=== PATIENT | female | born 1965 | race Hispanic/Latino ===

== ENCOUNTER 2019-06-22 11:05 | Outpatient (CLI) | payer OTHER ==
--- NOTE | 2019-07-19 12:14 | MMO ---
Bilateral MAMMO Bilat Screen [facility]. CLINICAL HISTORY: Patient is 53 years old and is seen for screening. The patient has no family history of breast cancer. The patient has no personal history of cancer. VIEWS: The views performed were: bilateral craniocaudal with tomosynthesis and bilateral mediolateral oblique with tomosynthesis. This study has been interpreted with the assistance of computer-aided detection. MAMMOGRAM FINDINGS: There are scattered fibroglandular densities. Finding 1: There are benign appearing calcifications seen in both breasts. Finding 2: There are benign appearing densities seen in both breasts. There are no suspicious masses, suspicious calcifications, or new areas of architectural distortion. IMPRESSION: THERE IS NO MAMMOGRAPHIC EVIDENCE OF MALIGNANCY. A ROUTINE FOLLOW-UP MAMMOGRAM IN 1 YEAR IS RECOMMENDED. THE RESULTS OF THIS EXAM WERE SENT TO THE PATIENT. ACR BI-RADS Category 2 - Benign finding MAMMOGRAPHY NOTE: 1. A negative mammogram report should not delay a biopsy if a dominant of clinically suspicious mass is present. 2. Approximately 10% to 15% of breast cancers are not detected by mammography. 3. Adenosis and dense breasts may obscure an underlying neoplasm. Reported by: BETH LOCKWOOD MD Electonically Signed: [id number]
== END 2019-06-22 11:06 | disposition home or self-care (01) ==
LOC: BICMAMMO 11:05
PROVIDERS: ATTEND Internal Medicine
DX: Z12.31 Encounter for screening mammogram for malignant neoplasm of breast (principal)
CPT/HCPCS: 77063; 77067

== ENCOUNTER 2020-01-09 09:29 | Inpatient (IN) | payer OTHER, SELFPAY ==
[2020-01-09 09:59] LABS: Base Excess-Venous -4.6 mmol/L (-2.0 to 3.0); Bicarbonate (HCO3v) 21.7 mmol/L (22.0-28.0); CO2 Tension (PvCO2) 43.2 mmHg (40.0-50.0); Calcium, Ionized 1.08 mmol/L (See Comments:); Chloride 99 mmol/L (98-107); Hemoglobin - Calc 17.8 g/dL (12.0-16.0); Potassium 3.2 mmol/L (3.5-5.1); Sodium 135 mmol/L (138-145); vO2 Saturation-calc 59.6 % (60.0-85.0)
[2020-01-09] MEDS ORDERED: EPINEPHrine 1 MG/ML AMP ONE (10:04)
[2020-01-09 10:13] LABS: Hemoglobin 15.4 g/dL (12.0-16.0); Mean Corpuscular HGB CONC 32.6 g/dL (32.0-36.0); Mean Corpuscular Hemoglobin 29.4 pg (27.0-31.0); Mean Platelet Volume 9.2 fL (7.4-10.4); Platelet Count 331 thou/uL (130-400); RBC Distribution Width 12.3 % (11.5-14.5); Red Blood Cell (RBC) Count 5.25 mill/uL (4.20-5.40); White Blood Cell (WBC) Count 21.7 thou/uL (4.8-10.8)
[2020-01-09] MEDS ORDERED: Cefepime 2 GM VIAL ONE (10:18)
[2020-01-09] MEDS ORDERED: Sodium Chloride 0.9% 100 ML ONE (10:18)
[2020-01-09 10:30] LABS: INR-International Normal Ratio 1.1; PTT 27.2 sec (22.9-36.1); Prothrombin Time 14.5 sec (12.0-14.7)
[2020-01-09 10:34] LABS: ALT (SGPT) 20 U/L (8-55); AST (SGOT) 26 U/L (5-34); Albumin 3.6 g/dL (3.5-5.0); Alkaline Phosphatase 94 U/L (40-110); Anion Gap 18 mmol/L (10-20); BUN (Urea Nitrogen) 23 mg/dL (9.8-20.1); Calc. Creatinine Clearance 0 mL/min (70-130); Calcium 8.6 mg/dL (7.8-10.44); Carbon Dioxide 19 mmol/L (22-29); Chloride 98 mmol/L (98-107); Estimated GFR-MDRD 30; Globulin 3.4 g/dL (2.4-3.5); Glucose 549 mg/dL (70-105); Lipase 36 U/L (8-78); Potassium 3.3 mmol/L (3.5-5.1); Sodium 132 mmol/L (136-145)
[2020-01-09 10:38] LABS: Band 26 % (5-11); Lymphocytes 9 % (21-51); MDiff Complete? YES; Metamyelocyte 3 % (0-0); Monocytes 4 % (0-10); Neutrophil 56 % (42-75); Platelet Morphology Comment Appears Adequate; Polychromasia SLIGHT = 2-3 cells (100X) (0-2/hpf); Reactive Lymphocytes 2 % (0-10); Vacuoles SLIGHT
--- NOTE | 2020-01-09 10:41 | RAD ---
EXAM: Single view of the chest HISTORY: Dizziness and headache COMPARISON: None FINDINGS: Single view of the chest shows a normal sized cardiomediastinal silhouette. There is no margie dence of consolidation, mass, or pleural effusion. No acute osseous abnormality. IMPRESSION: No evidence of acute cardiopulmonary disease
--- NOTE | 2020-01-09 11:18 | CT ---
CT ANGIOGRAM THORAX WITH IV CONTRAST AND 3-D RECONSTRUCTIONS CLINICAL INDICATION: Hypoxia and hypotension. Hives. COMPARISON: None FINDINGS: Pulmonary arteries: No filling defects are seen in the pulmonary arteries to suggest a pulmonary embo enrique. Aorta: Minimal atherosclerotic calcifications and plaque are seen in the thoracic aorta. The thoracic aorta is normal in caliber without evidence of an aortic dissection. Lungs: Dependent atelectasis is present bilaterally. Patchy parenchymal density is seen in the inferi or aspect of the lingula which is thought to be related to scarring and/or volume loss. A calcified granuloma is seen in the lingula. No consolidation, pulmonary nodule, mass, or pleural effusion is se en. Mediastinum: There is no evidence of lymphadenopathy. Thyroid gland: There is artifact extending through each lobe of the thyroid gland limiting evaluation . However, lower attenuation areas are present which could be artifactual, but thyroid nodules are a possibility. Nonemergent thyroid ultrasound is recommended. Osseous structures: No suspicious lytic or sclerotic osseous lesion. Chest wall: No abnormality visualized. Upper abdomen: Within normal limits for phase of imaging. IMPRESSION: 1. Questionable hypodense nodules each lobe of thyroid gland. This could potentially be artifactual a s there is artifact extending through this region. Nonemergent follow-up thyroid ultrasound is recommended for further evaluation. 2. No CT evidence of a pulmonary embolus.
[2020-01-09 12:16] LABS: Bacteria/HPF 4+ HPF (None Seen); Bilirubin Negative (Negative); Blood, Urine 2+ (Negative); Clarity Clear (Clear); Glucose, Urine (Dipstick) Greater than 1000 mg/dL (Negative); Ketone, Urine Negative (Negative); Leukocyte 250 Leu/uL (Negative); Nitrite Negative (Negative); Pregnancy Test - Urine (BHCG) Negative (Negative); Pregu Control Background? CLEAR/WHITE (CLR/WHITE); Pregu Control Bar Appear? YES (CONTROL BAR); Protein, Urine (Dipstick) 20 mg/dL (Neg-Trace); Squamous Epithelial 0-3 HPF (0-3); Urobilinogen Normal mg/dL (Less than 2); WBC/HPF 21-50 HPF (0-3); pH, Urine 5.5 (5.0-9.0)
--- NOTE | 2020-01-09 13:25 | RAD ---
CHEST 1 VIEW: HISTORY: Fatigue, dizziness, itching, post line placement. COMPARISON: 01/09/2020. FINDINGS: Right jugulovenous central line placed with the tip in the superior vena cava. No active intrathorac ic disease. No pneumothorax or pleural effusion. IMPRESSION: Unremarkable post line chest 1 view. No pneumothorax or pleural effusion. POS: RRE
[2020-01-09] MEDS ORDERED: Norepinephrine 8 MG/0.9% NS 250 ML ONE (13:29)
[2020-01-09] MEDS ORDERED: Norepinephrine 8 MG/0.9% NS 250 ML IVPB SCH (13:45)
[2020-01-09] MEDS ORDERED: Ondansetron PF 4 MG/2 ML Vial IVP PRN (13:45)
[2020-01-09] MEDS ORDERED: Guaifenesin DM 100-10/5 ML UDCUP PO PRN (13:45)
[2020-01-09] MEDS ORDERED: HumaLOG 300 UNITS/3 ML VIAL SC PRN (13:45)
[2020-01-09] MEDS ORDERED: Calcium Carbonate 500 MG ChewTAB PO PRN (13:45)
[2020-01-09] MEDS ORDERED: Bisacodyl 10 MG SUPP PR PRN (13:45)
[2020-01-09] MEDS ORDERED: Dextrose 50% Abboject 50 ML SYRINGE SLOW IVP PRN (13:45)
[2020-01-09] MEDS ORDERED: Senokot S 8.6-50 MG TAB PO PRN (13:45)
[2020-01-09] MEDS ORDERED: Dextrose 5% in Water 1,000 ML IV PRN (13:45)
[2020-01-09] MEDS ORDERED: Iopamidol-370 76% 500 ML 1 ML ONE (13:46)
[2020-01-09] MEDS ORDERED: Electrolyte Replacement Protoc 1 EACH EACH FS ONE (13:53)
[2020-01-09 14:05] LABS: Lactic Acid 1.6 mmol/L (0.5-2.2)
[2020-01-09] MEDS ORDERED: Electrolyte Replacement Protocol FS PRN (14:15)
[2020-01-09 14:18] LABS: SARS-CoV-2 NAA Rapid Test DETECTED (NotDetected)
--- NOTE | 2020-01-09 14:23 | HP ---
REASON FOR ADMISSION: Anaphylactic shock; possible sepsis; urinary tract infection; diabetes mellitus type 2, uncontrolled. HISTORY OF PRESENTING ILLNESS: The patient gives history of feeling very weak initially. She took a tablet of Tylenol yesterday evening. The patient soon started to itch all over. The itching continued all through the night until this morning. She felt dizzy while walking this morning and EMS was summoned. No complaints of fever or cough. No exposure to COVID. Yesterday, she was at the [employer], but says she ate tacos with usual ingredients in it. She does not recall if anything bit her. Has no known allergies as such. She has not started any new medication. She does not complain of urinary frequency or urgency. She lives with her sister. She has a Chihuahua dog and no other pets in the house. On arrival here, the patient had systolic pressures in the 60s. She was given 3 L IV fluid and was also given a dose of epi. She has also received a dose of vancomycin in the ER. PAST MEDICAL AND SURGICAL HISTORY: Diabetes mellitus type 2, obesity, C- section x6, cholecystectomy, peripheral neuropathy. CURRENT MEDICATIONS: The patient is on lisinopril 10 mg daily, gabapentin 400 mg p.o. three times daily, Janumet 50/500 mg extended release once daily, 70/30 insulin 40 units in the morning. ALLERGIES: SUSPECTED ALLERGY TO TYLENOL. PERSONAL HISTORY: Does not abuse alcohol or drugs. No history of smoking. She ambulates by herself. She is living with her sister. She is disabled due to diabetes. FAMILY HISTORY: Mother at the age of 56. She had a history of diabetes. The patient got hospitalized for flu related symptoms and developed multiple organ failure and . Father of cancer in the neck and was a heavy smoker. He was 67. The patient has 5 children ranging from 17 to 34 years old. CODE STATUS: Full. Power of securities attorney is her sister, Svetlana Emery. REVIEW OF SYSTEMS: CONSTITUTIONAL: Negative for weight loss or gain, ability to conduct usual activities. SKIN: Negative for rash, itching. EYES: Negative for double vision, pain. ENT/MOUTH: Negative for nose bleeding, neck stiffness, pain, tenderness. CARDIOVASCULAR: Negative for palpitations, dyspnea on exertion, orthopnea. RESPIRATORY: Negative for shortness of breath, wheezing, cough, hemoptysis, fever or night sweats. GASTROINTESTINAL: Negative for poor appetite, abdominal pain, heartburn, nausea , vomiting, constipation, or diarrhea. GENITOURINARY: Negative for urgency, frequency, dysuria, nocturia. MUSCULOSKELETAL: Negative for pain, swelling. NEUROLOGIC/PSYCHIATRIC: Negative for anxiety, depression. ALLERGY/IMMUNOLOGIC: Negative for skin rash, bleeding tendency. PHYSICAL EXAMINATION: GENERAL: The patient is a 54-year-old female, who is currently not in any acute distress. VITAL SIGNS: Blood pressure currently 100/60, pulse 116 per minute, respiratory rate 18 per minute, temperature 97.8 degrees Fahrenheit, saturating 96% on room air. NECK: Supple. No elevated JVD. HEENT: Eyes; extraocular muscles intact. Pupils reacting to light. Oral cavity, mucous membranes are dry. No exudates or congestion. CARDIOVASCULAR: S1-S2 heard. Regular rhythm. RESPIRATORY: Air entry 1+ bilateral. No rales or rhonchi. ABDOMEN: Soft. Bowel sounds heard. No tenderness, rigidity, or guarding. EXTREMITIES: No peripheral edema or calf tenderness. VASCULAR: Peripheral pulses 1+ bilateral. No ischemic ulcerations or gangrene. CENTRAL NERVOUS SYSTEM: No gross focal motor deficits noted. The patient is alert, awake, and oriented well. PSYCHIATRIC: The patient's mood is euthymic. No hallucinations or delusions. SKIN: The patient has severe urticarial rash all over her. She has multiple wheals and welts seen all over her body. LABORATORY DATA: White count of 21, H and H 15 and 47, platelet count is 331, with 56% neutrophils, 26% bands. MCV is 90. PT/INR and PTT within normal limits. Venous blood gas done shows a pH of 7.30, serum sodium is 135, potassium 3.2, serum bicarb 19, BUN 23, creatinine 1.79, serum glucose 549. Liver enzymes within normal limits. First set of cardiac enzymes are negative. BNP 11. Albumin 3.6. Lipase is 36. UA is strongly positive for UTI. CT angio chest done shows no evidence of PE. Questionable hypodense nodules in the thyroid. CLINICAL IMPRESSION AND PLAN: The patient will be admitted to ICU for severe anaphylactic shock with hypotension. She has currently received 3 L of IV fluid and one dose of epi intramuscular. She is also getting 100 mg of hydrocortisone x1 in the ER. We will continue her on Solu-Medrol 40 mg IV q.6 hourly, Benadryl 50 mg IV q.8 hourly. We will continue her IV fluids at 100 mL per hour with normal saline. If needed, Levophed will be used to keep her MAP of 65. Dean-cultures have been obtained in the ER. We will empirically place her on cefepime, vancomycin, and Flagyl. Likely, her antibiotics will be discontinued once culture results are back tomorrow. The patient's hypotension clearly appears to be due to anaphylactic shock and severe histamine release with hypotension. We will obtain a CT stone protocol to rule out any obstructive process with urinary tract infection. A COVID rapid PCR test is being done in the ER. Her diabetes which is uncontrolled at present, might get worse with steroids and we will aggressively treat her with Lantus 35 units subcu twice daily and aggressive Humalog coverage. If needed, we will escalate the Lantus or place her on iv insulin. We will continue to closely monitor her in ICU for now. Job ID: [id number] MTDD
[2020-01-09] MEDS ORDERED: Vancomycin HCl 1 GM in Sodium Chloride 0.9% 250 ML 300 ML IVPB SCH (21:00)
--- NOTE | 2020-01-09 21:48 | CT ---
Exam: Abdomen CT without contrast Pelvic CT without contrast HISTORY: Urinary tract infection. Sepsis. Evaluate for obstruction. COMPARISON: None FINDINGS: Abdomen CT: Lung bases:Chronic changes Heart size: Normal heart size. No pericardial effusion Aorta: Normal caliber. No periaortic fat stranding. Solid organs: Limited evaluation by the absence of IV contrast. Grossly no solid organ abnormality. Lymph nodes: No gastrohepatic, retrocrural or periportal lymphadenopathy Gallbladder: Surgically absent Mesentery: No mass, lymphadenopathy, free air or free fluid Kidneys: There appears to be excreted contrast from previous CT angiogram of the chest performed vamsi ier today. No evidence of hydronephrosis. Presence of contrast limits evaluation for ureteral and intrarenal calculi. Nevertheless no evidence of dilatation with regards to the left or right intraren al/extra renal collecting systems. Alimentary canal: Limited evaluation by the absence of oral contrast. No bowel obstruction. Normal il eocecal junction. Normal caliber appendix. Scattered fecal material in a nondistended, nondilated colon. CT PELVIS: Contrast opacifies the urinary bladder. Surgically absent uterus Intrapelvic structures: No pelvic mass, lymphadenopathy, free air or free fluid Osseous structures: No lytic or blastic lesions IMPRESSION: 1. No evidence of obstructive uropathy. Evaluation for small intrarenal and ureteral calculi is limit ed by the presence of excreted IV contrast. No evidence of hydronephrosis or hydroureter.
[2020-01-09 22:54] VITALS: BMI 25.4
[2020-01-09] MEDS ORDERED: Lorazepam 2 MG/ML VIAL SLOW IVP SCH (23:15)
[2020-01-09] MEDS ORDERED: Vancomycin HCl 750 MG in Sodium Chloride 0.9% 250 ML 250 ML IVPB SCH (23:30)
[2020-01-10] MEDS: Sodium Chloride 0.9% 1,000 ML IV SCH ×4 (00:13→20:06)
[2020-01-10] MEDS: diphenhydrAMINE 50 MG/ML VIAL IVP SCH ×5 (00:14→21:59)
[2020-01-10] MEDS: methylPREDNISolone Sod Succ 40 MG VIAL IVP SCH ×4 (00:14→14:08)
[2020-01-10] MEDS: metroNIDAZOLE 500 MG in Premix Bag 1 BAG IVPB SCH ×4 (00:14→14:10)
[2020-01-10] MEDS: Insulin Glargine 35 UNITS in Pre-Filled Syringe 1 EACH SC SCH ×2 (00:18→10:09)
[2020-01-10] MEDS: Cefepime 1 GM in Sodium Chloride 0.9% 100 ML IVPB SCH ×2 (00:20→10:10)
[2020-01-10] MEDS: HumaLOG 300 UNITS/3 ML VIAL SC PRN ×4 (00:30→18:32)
[2020-01-10 05:24] LABS: Hemoglobin 11.2 g/dL (12.0-16.0); Mean Corpuscular HGB CONC 32.3 g/dL (32.0-36.0); Mean Corpuscular Hemoglobin 28.6 pg (27.0-31.0); Mean Corpuscular Volume 88.7 fL (78.0-98.0); Mean Platelet Volume 9.1 fL (7.4-10.4); Platelet Count 212 thou/uL (130-400); RBC Distribution Width 12.2 % (11.5-14.5); Red Blood Cell (RBC) Count 3.92 mill/uL (4.20-5.40); White Blood Cell (WBC) Count 20.7 thou/uL (4.8-10.8)
[2020-01-10 05:37] LABS: ALT (SGPT) 15 U/L (8-55); AST (SGOT) 11 U/L (5-34); Albumin 2.9 g/dL (3.5-5.0); Alkaline Phosphatase 70 U/L (40-110); Anion Gap 14 mmol/L (10-20); BUN (Urea Nitrogen) 20 mg/dL (9.8-20.1); Bilirubin, Total 0.3 mg/dL (0.2-1.2); Calc. Creatinine Clearance 82 mL/min (70-130); Carbon Dioxide 19 mmol/L (22-29); Chloride 107 mmol/L (98-107); Estimated GFR-MDRD 65; Globulin 2.9 g/dL (2.4-3.5); Glucose 328 mg/dL (70-105); Potassium 3.6 mmol/L (3.5-5.1); Protein, Total 5.8 g/dL (6.0-8.3); Sodium 136 mmol/L (136-145)
[2020-01-10 07:43] LABS: Band 37 % (5-11); Lymphocytes 5 % (21-51); MDiff Complete? YES; Metamyelocyte 1 % (0-0); Monocytes 3 % (0-10); Neutrophil 54 % (42-75); Ovalocytes SLIGHT = 2-5 cells (100X) (0-1/hpf); Platelet Morphology Comment Appears Adequate; Polychromasia SLIGHT = 2-3 cells (100X) (0-2/hpf)
[2020-01-10] MEDS: Enoxaparin Sodium 40 MG/0.4 ML SYRINGE SC SCH (10:09)
--- NOTE | 2020-01-10 11:05 | CON ---
DATE OF CONSULTATION: 01/10/2020 REASON FOR CONSULTATION: COVID-19 infection. HISTORY OF PRESENT ILLNESS: This lady presented to the emergency room yesterday with an anaphylactic type reaction. She is 54 years old. She felt like she was itching all over yesterday. She also complained of a boil on her abdomen. She was given hydrocortisone and IV fluid and had improvement in her blood pressure from 60s back to normal. She was incidentally found to have COVID-19 infection, but does not have any pneumonia and is currently not receiving any oxygen. She is not sure how long she has had that as she has been asymptomatic in terms of cough, congestion, etc. PAST MEDICAL HISTORY: 1. Uncontrolled diabetes mellitus type 2. 2. Peripheral neuropathy. PAST SURGICAL HISTORY: 1. x6. 2. Cholecystectomy. MEDICATIONS: Prior to admission; 1. Lisinopril. 2. Gabapentin. 3. Janumet. 4. 70/30 insulin. ALLERGIES: TYLENOL. SOCIAL HISTORY: Does not smoke. Does not consume alcohol. She is on disability due to her diabetes. FAMILY MEDICAL HISTORY: Remarkable for diabetes, head and neck cancer. REVIEW OF SYSTEMS: Remarkable for the boil on her abdomen, uncontrolled blood sugars. Otherwise, negative. PHYSICAL EXAMINATION: VITAL SIGNS: Temperature 97, pulse 118, blood pressure 110/69, O2 saturation 97%. HEENT: Unremarkable. NECK: No adenopathy or JVD. LUNGS: Clear. CARDIAC: S1 and S2, regular. ABDOMEN: Boil noted in left upper quadrant abdomen. Abdominal obesity noted. EXTREMITIES: No clubbing, cyanosis, or edema. LABORATORY DATA: Sodium 136, potassium 3.6, chloride 107, CO2 of 19, BUN 20, creatinine 0.9, glucose 328. White blood cell count 20.7, hematocrit 34.8, and platelet count 212, with 54% neutrophils, 37% bands. She is growing E coli out of urine culture. ASSESSMENT: 1. COVID infection. No evidence of pneumonia on chest x-ray or CT scan. 2. Abdominal boil. 3. Question of anaphylactic reaction. PLAN: 1. Right now, she is on methylprednisolone for the anaphylaxis. That probably needs to be tapered over a week or so. 2. She needs better control of her diabetes. 3. Continue antibiotics for E coli and abdominal boil. 4. Consider adding remdesivir if she develops any type of pulmonary symptoms or hypoxemia. I think right now you can hold off on that. However, she does have a high risk of worsening, given her underlying uncontrolled diabetes. Job ID: [id number]
--- NOTE | 2020-01-10 17:00 | PDOC.HOSPP ---
- Subjective Encounter Date: 01/10/20 Encounter Time: 15:00 Subjective: The patient is slightly tachycardic. SHe has been ambulating and denies palpitations, cough or SOB. Did not know about being COVID + previously and denies family members that are COVID + The patient states she ate taco with green salsa, she has never eaten green salsa before. Denies allergies to onions or red tomatoes, beans or cheese. She has been on an ROSA inhibitor for years. Denied significant tongue swelling or lip swelling - Objective Vital Signs & Weight: Vital Signs (12 hours) Pulse Ox 01/10/20 08:00 100 Weight Weight 158 lb Most Recent Monitor Data Heart Rate from ECG 108 NIBP 127/76 NIBP BP-Mean 93 Respiration from ECG 24 SpO2 100 I&O: 01/09/20 01/10/20 01/11/20 06:59 06:59 06:59 Intake Total 360 Balance 360 Result Diagrams: 01/10/20 04:45 01/10/20 04:45 Additional Labs: Accuchecks 01/10/20 01/10/20 01/10/20 14:34 06:49 00:36 POC Glucose 377 H 303 H 404 H 01/09/20 21:10 POC Glucose 339 H Hospitalist ROS - Review of Systems Constitutional: denies: fever, chills - Medication Medications: Active Medications Generic Name Dose Route Start Last Admin Trade Name Freq PRN Reason Stop Dose Admin Diphenhydramine HCl 50 mg 01/09/20 14:00 01/10/20 14:08 Benadryl IVP 50 mg Q8HR VERITO Administration Enoxaparin Sodium 40 mg 01/10/20 09:00 01/10/20 10:09 Lovenox SC 40 mg 0900 VERITO Administration Sodium Chloride 1,000 mls @ 100 mls/hr 01/09/20 13:45 01/10/20 10:13 Normal Saline 0.9% IV 1,000 mls .Q10H VERITO Administration Insulin Human Lispro 0 units 01/09/20 13:45 01/10/20 15:59 Humalog SC 13 unit .AGGRESSIVE SLIDING PRN Administration Aggressive Correctional Scale - Exam General Appearance: NAD, awake alert Eye: PERRL, anicteric sclera ENT: normocephalic atraumatic, no oropharyngeal lesions Neck: no JVD Heart: RRR, no murmur, no gallops, no rubs Respiratory: CTAB, no wheezes, no rales, no ronchi, normal percussion Gastrointestinal: soft, non-tender, non-distended, normal bowel sounds Extremities: no cyanosis, no clubbing, no edema Skin: normal turgor, no lesions, no rashes Skin - other findings: abdominal rash with small open wound, no significant drainage Neurological: cranial nerve grossly intact, normal sensation to touch, no focal deficits, no new deficit Hosp A/P - Plan Chest X ray: normal CT abdomen: no obstructive uropathy This is 54 year old female who presented with anaphylaxis after eating taco Anaphylactic shock - currently appears to have resolved - no wheezing on exam, will reduce steroids to 40 mg IV daily given uncontrolled diabetes Sepsis from E coli UTI vs abdominal cellulitis - urine culture shows 100,00 E coli. Also has small ulcer on abdomen with surrounding cellulitis. Chest X ray shows no pneumonia. Blood cultures negative - continue IV ceftriaxone and vancomycin - d/c flagyl - also has small ulcer on abdomen with surrounding cellulitis Type II diabetes - increase lantus to 42 units qhs - aggressive sliding scale - d/c steroids Sinus tachycardia - continue IV fluids Dispo: will transfer to telemetry
[2020-01-10 19:24] LABS: Band 30 % (5-11); Hemoglobin 11.5 g/dL (12.0-16.0); Lymphocytes 4 % (21-51); MDiff Complete? YES; Mean Corpuscular HGB CONC 32.9 g/dL (32.0-36.0); Mean Corpuscular Hemoglobin 29.4 pg (27.0-31.0); Mean Corpuscular Volume 89.4 fL (78.0-98.0); Mean Platelet Volume 8.8 fL (7.4-10.4); Monocytes 2 % (0-10); Neutrophil 64 % (42-75); Platelet Count 214 thou/uL (130-400); Platelet Morphology Comment Appears Adequate; Polychromasia SLIGHT = 2-3 cells (100X) (0-2/hpf); White Blood Cell (WBC) Count 18.8 thou/uL (4.8-10.8)
[2020-01-10] MEDS ORDERED: Insulin Glargine 42 UNITS in Pre-Filled Syringe 1 EACH SC SCH (21:00)
--- NOTE | 2020-01-10 21:29 | CON ---
DATE OF CONSULTATION: 01/10/2020 REASON FOR CONSULTATION: COVID and urticaria. HISTORY OF PRESENT ILLNESS: A 54-year-old, who has a history of type 2 diabetes and is on insulin and Januvia. She also takes gabapentin for cramps in her lower extremities and was in her usual state until the morning of admission when she developed weakness and what she describes as itchy lesions throughout her body skin, probably urticaria or hives. Did not have any evidence of angioedema, so she presented to the emergency room and her lowest BP was 85/64 and 78/49. O2 saturations are always in the 100% on room air. She was moderately tachycardic and tachypneic. The exam was fairly unremarkable. So, they thought that she might have UTI, although the patient did not have any positive symptoms of urinary tract infection. She also tested positive for COVID and she was admitted after IV fluids given through a central line. Her lactate was somewhat elevated as well. Other findings initially included urinalysis with 21 to 50 wbc's and white cell count 21.7, hemoglobin 15, platelets 331, 26% bands, and 3% metamyelocytes. The creatinine was 1.79 and 0.91 after treatment. Liver profile was normal. BNP 11, albumin 3.6, and lipase 36. Urine culture with presumptive E coli with pending susceptibility results and blood culture thus far no growth. Currently, Ms. Henderson is feeling well, much improved. The itching has subsided. No headaches, visual symptoms, sore throat, odynophagia, or dysphagia. She had no respiratory symptoms and no diarrhea. She had no dysuria, no back pain or hematuria, no frequency, no incontinence, no change in the color of urine, no joint symptoms, no neurological symptoms. PAST MEDICAL HISTORY: Type 2 diabetes; obesity; cramps, managed with gabapentin. SOCIAL HISTORY: No alcoholic beverage use. No smoking. ALLERGIES: ACETAMINOPHEN, REPORTEDLY HIVES. MEDICATIONS: 1. Lisinopril. 2. Gabapentin. 3. Januvia. 4. Insulin. FAMILY HISTORY: Type 2 diabetes. CURRENT MEDICATIONS: 1. Ceftriaxone. 2. Diphenhydramine. 3. Enoxaparin. 4. Insulin. 5. Medrol. 6. Vancomycin. PHYSICAL EXAMINATION: VITAL SIGNS: I do not have temperature recordings here, but in the emergency room, she remained afebrile. BP 135/77, heart rate 107, O2 saturation 100%, and breathing 24 times a minute. She is saturating 100% with room air O2. LYMPH: No lymphadenopathy. HEENT: Ocular movements conjugate. All the urticarial lesions have resolved. Oral cavity normal. NECK: Supple. LUNGS: Symmetric. Clear breath sounds. HEART: S1 and S2, regular rate. No S3 or S4. ABDOMEN: Soft, not distended or tender. No ascites. No bladder distention. EXTREMITIES: No joint inflammatory activity. Moves extremities equally. Little bit of pretibial edema. NEURO: Nonfocal including cognitive function. Speech is normal. No delusional thinking process. She is oriented. LABORATORY DATA: Latest labs; white cell count 20.7, hemoglobin 11.2, platelets 212, 54% neutrophils, 37% bands, and 5% lymphocytes. IMAGING DATA: CT of chest with angiogram showed hypodense nodules in the thyroid gland. Otherwise, CT was normal. Patchy parenchymal density is seen in the inferior aspect of the lingula, probably volume loss. She had an abdomen and pelvis CT done as well and that showed no uropathy, no obstructive features. The kidneys appeared normal. ASSESSMENT: Type 2 diabetes, hypertension, new onset of urticaria, hypotension, leukocytosis with a left shift, and COVID positive PCR on admission. DISCUSSION: Differential diagnosis includes ROSA inhibitor associated urticaria versus urticaria associated with COVID or gabapentin provoked urticaria. Urinary findings are significant in the sense that the patient had high lactate, although she had no symptoms of urinary tract infection. No imaging suggestive of pyelonephritis, so those findings could be an innocent bystander, although I do not have any option at this moment in view of the constellation of findings that suggest an invasive process. Waiting on the susceptibility of the E coli to hopefully transition to oral antimicrobial therapy. She probably needs to avoid either the lisinopril or the gabapentin or both going forward. Regarding the COVID, she appears to have a mild case, which does not merit any antiviral treatment at this point. Has been started on Medrol for the urticarial present syndrome and that will be able to be tapered and stopped soon. We will ask pathologist to do a manual differential in the WBC count. Job ID: [id number]
[2020-01-10] MEDS ORDERED: Vancomycin HCl 750 MG in Sodium Chloride 0.9% 250 ML 250 ML IVPB SCH ×2 (23:00)
[2020-01-11] MEDS: Sodium Chloride 0.9% 1,000 ML IV SCH ×2 (04:04→13:07)
[2020-01-11 04:05] LABS: Hemoglobin 10.7 g/dL (12.0-16.0); Mean Corpuscular HGB CONC 33.5 g/dL (32.0-36.0); Mean Corpuscular Hemoglobin 29.8 pg (27.0-31.0); Mean Corpuscular Volume 88.9 fL (78.0-98.0); Platelet Count 224 thou/uL (130-400); White Blood Cell (WBC) Count 17.5 thou/uL (4.8-10.8)
[2020-01-11] MEDS ORDERED: Labetalol HCl 100 MG/20 ML VIAL ONE (05:38)
[2020-01-11] MEDS: diphenhydrAMINE 50 MG/ML VIAL IVP SCH ×3 (05:52→21:27)
[2020-01-11] MEDS: HumaLOG 300 UNITS/3 ML VIAL SC PRN ×2 (05:55→16:42)
[2020-01-11] MEDS: Enoxaparin Sodium 40 MG/0.4 ML SYRINGE SC SCH (08:55)
[2020-01-11] MEDS: methylPREDNISolone Sod Succ 40 MG VIAL IVP SCH (08:56)
[2020-01-11] MEDS ORDERED: cefTRIAXone\\ROCEPHIN 1 GM in Sodium Chloride 0.9% 100 ML IVPB SCH (16:00)
--- NOTE | 2020-01-11 17:33 | PDOC.HOSPP ---
- Subjective Encounter Date: 01/11/20 Encounter Time: 08:00 Subjective: The patient is doing well. NO abdominal pain, no dysuria. no cough or SOB . She is eating well. She denies itching Her rash/boil on her abdomen has improved. She states yesterday it was very tender to touch, but today it is not Per micro lab, urine culture is growing two kinds of E coli, sensitivity to return tomorrow - Objective Vital Signs & Weight: Vital Signs (12 hours) Temp Pulse Resp BP Pulse Ox 01/11/20 16:50 98.1 F 91 20 147/71 H 97 01/11/20 13:05 98.8 F 93 22 H 155/82 H 97 01/11/20 10:55 96 01/11/20 09:00 98.8 F 107 H 23 H 141/75 H 96 01/11/20 05:51 80 Weight Weight 158 lb Most Recent Monitor Data Heart Rate from ECG 107 NIBP 135/77 NIBP BP-Mean 96 Respiration from ECG 24 SpO2 100 I&O: 01/10/20 01/11/20 01/12/20 06:59 06:59 06:59 Intake Total 1770 Output Total 1500 Balance 270 Result Diagrams: 01/11/20 03:17 01/10/20 04:45 Additional Labs: Accuchecks 01/11/20 01/11/20 01/11/20 16:41 11:16 06:01 POC Glucose 312 H 226 H 229 H 01/10/20 01/10/20 22:09 18:41 POC Glucose 291 H 391 H Hospitalist ROS - Review of Systems Constitutional: denies: fever, chills - Medication Medications: Active Medications Generic Name Dose Route Start Last Admin Trade Name Freq PRN Reason Stop Dose Admin Diphenhydramine HCl 50 mg 01/09/20 14:00 01/11/20 12:54 Benadryl IVP 50 mg Q8HR VERITO Administration Enoxaparin Sodium 40 mg 01/10/20 09:00 01/11/20 08:55 Lovenox SC 40 mg 0900 VERITO Administration Sodium Chloride 1,000 mls @ 100 mls/hr 01/09/20 13:45 01/11/20 13:07 Normal Saline 0.9% IV 1,000 mls .Q10H VERITO Administration Insulin Glargine 42 units/ 0.42 mls @ 0 mls/hr 01/10/20 21:00 01/10/20 21:59 Miscellaneous Medication SC 0.42 mls HS VERITO Administration Insulin Human Lispro 0 units 01/09/20 13:45 01/11/20 16:42 Humalog SC 11 unit .AGGRESSIVE SLIDING PRN Administration Aggressive Correctional Scale Methylprednisolone Sodium Succinate 40 mg 01/11/20 09:00 01/11/20 08:56 Solu-Medrol IVP 40 mg DAILY VERITO Administration - Exam General Appearance: NAD, awake alert Eye: PERRL, anicteric sclera ENT: normocephalic atraumatic, no oropharyngeal lesions Neck: no JVD Heart: RRR, no murmur, no gallops, no rubs Respiratory: CTAB, no wheezes, no rales, no ronchi Gastrointestinal: soft, non-tender, non-distended, normal bowel sounds Extremities: no cyanosis, no clubbing, no edema Skin - other findings: rash on abdomen has improved not warm or tender to palpation Neurological: no focal deficits, no new deficit Hosp A/P - Plan Chest X ray: normal CT abdomen: no obstructive uropathy This is 54 year old female who presented with anaphylaxis after eating taco Anaphylactic shock - currently appears to have resolved - no wheezing on exam, on IV steroids to 40 mg IV daily. Will switch to oral - cause may be from food allergy vs ROSA inhibitor Sepsis from E coli UTI vs abdominal cellulitis - urine culture shows 100,00 E coli. Also has small ulcer on abdomen with surrounding cellulitis. Chest X ray shows no pneumonia. Blood cultures negative - will switch to doxycycline and cefdinir orally. F/u urine culture sensitivities tomorrow Type II diabetes - increase lantus to 48 units qhs - aggressive sliding scale Sinus tachycardia - resolved, will d/c IV fluids Dispo: will place PT evaluation
[2020-01-11] MEDS ORDERED: PRE FILLED SC SCH (21:00)
[2020-01-11] MEDS ORDERED: INSULIN GLARGINE SC SCH (21:00)
[2020-01-11] MEDS: Doxycycline 100 MG CAP PO SCH (21:27)
[2020-01-11] MEDS: Cefdinir 300 MG CAP PO SCH (21:27)
[2020-01-11 22:56] LABS: Vancomycin, Trough 2.8 ug/mL
[2020-01-12 04:58] LABS: Hemoglobin 10.8 g/dL (12.0-16.0); Mean Corpuscular HGB CONC 32.9 g/dL (32.0-36.0); Mean Corpuscular Hemoglobin 29.3 pg (27.0-31.0); Mean Corpuscular Volume 89.1 fL (78.0-98.0); Mean Platelet Volume 8.1 fL (7.4-10.4); Platelet Count 245 thou/uL (130-400); RBC Distribution Width 11.8 % (11.5-14.5); Red Blood Cell (RBC) Count 3.67 mill/uL (4.20-5.40); White Blood Cell (WBC) Count 17.5 thou/uL (4.8-10.8)
[2020-01-12 05:21] LABS: Iron 29 ug/dL (50-170); Iron Binding Capacity, Total 189 mcg/dL (265-497)
[2020-01-12 05:38] LABS: Ferritin 234.05 ng/mL (10-291); Thyroid Stimulating Hormone 1.2171 uIU/mL (0.35-4.94)
[2020-01-12] MEDS: diphenhydrAMINE 50 MG/ML VIAL IVP SCH ×2 (05:42→13:46)
[2020-01-12] MEDS: HumaLOG 300 UNITS/3 ML VIAL SC PRN ×2 (05:51→12:28)
[2020-01-12] MEDS ORDERED: predniSONE 20 MG TAB PO SCH (09:00)
[2020-01-12] MEDS: Enoxaparin Sodium 40 MG/0.4 ML SYRINGE SC SCH (09:59)
[2020-01-12] MEDS: Doxycycline 100 MG CAP PO SCH (09:59)
[2020-01-12] MEDS: Cefdinir 300 MG CAP PO SCH (09:59)
[2020-01-12] MEDS: methylPREDNISolone Sod Succ 40 MG VIAL IVP SCH (10:15)
[2020-01-12] MEDS ORDERED: Amlodipine 5 MG TAB PO SCH (13:00)
[2020-01-12 13:31] VITALS: BP 144/78; TEMP 98
--- NOTE | 2020-01-12 15:51 | DIS ---
DATE OF ADMISSION: 01/09/2020 DATE OF DISCHARGE: 01/12/2020 DISCHARGE DIAGNOSES: 1. Anaphylactic shock. 2. Sepsis secondary to Escherichia coli urinary tract infection versus abdominal cellulitis. 3. Sinus tachycardia. 4. Uncontrolled diabetes. 5. COVID positive. 6. Leukocytosis. 7. Thyroid nodules CONSULTATIONS: 1. Dr. Kevin Villagomez with Pulmonary Critical Care. 2. Dr. Humberto Beach with Infectious Disease. PROCEDURES: None. BRIEF HISTORY OF PRESENT ILLNESS: This is a 54-year-old female with a past medical history of hypertension and diabetes, who presented to the emergency room with itching. This started after the patient ate tacos with green salsa. The patient states that she has never eaten green salsa before and thought she might have been allergic to this. She initially started itching and then developed dizziness while walking, so she called EMS. Her blood pressure was in the 60s on arrival. She was given 3 L of IV fluids and a dose of epinephrine. She was also given vancomycin , admitted to the hospital for further workup. HOSPITAL COURSE: Anaphylactic shock: The patient was recently admitted to the ICU due to hypotension and urticaria. She was given epinephrine SC with improvement. She did not require any intubation. The patient was started on IV steroids with improvement. On discharge, there was no wheezing or shortness of breath. She was discharged on a slow prednisone taper of 40 mg x2 days, then 30 mg x2 days, then 20 mg x2 days. She was advised to follow up with an cad designer as an outpatient for allergy skin testing. The patient states that she was taking lisinopril for years and had no allergic reaction previously. However, as a precautionary measure, this was discontinued on discharge and she was switched to amlodipine 5 mg daily for her hypertension. Sepsis secondary to E coli UTI versus cellulitis: The patient did not have any dysuria on admission. Blood cultures were negative. Her white count was 21.7. Urine culture showed 100,000 E coli. Urine culture sensitivity is still pending and per Micro Lab, they are repeating the culture given that there are 2 different E coli organisms. She did receive ceftriaxone and vancomycin while in the hospital. She did improve with this significantly. She also had a boil on her abdomen with surrounding cellulitis with warmth, erythema, and tenderness. Her cellulitis improved significantly with antibiotics. She will be discharged with cefdinir and doxycycline for an additional 5 more days. She will follow up with her PCP in a week. Type 2 diabetes: The patient's insulin was increased while in the hospital due to her being on steroids. However, she was resumed on her home dose of insulin 70/ 30 at the time of discharge. DISCHARGE PHYSICAL EXAMINATION: VITAL SIGNS: Temperature 98, heart rate 90, respiratory rate 20, O2 saturation 98% on room air, blood pressure 144/70. GENERAL: The patient is alert, awake, and oriented x3. She is overweight. CVS: Regular rate and rhythm with no murmurs, rubs, or gallops. LUNGS: Clear to auscultation bilaterally. ABDOMEN: Positive bowel sounds, soft, nontender, nondistended. The patient does not have a significant boil on her abdomen. Her rash has significantly decreased in size and is no longer warm to touch. It is no longer tender. EXTREMITIES: No edema. PERTINENT LABORATORY DATA: CBC 01/11: White count 17.5, hemoglobin 10.8, hematocrit 32.8, platelet count 245. BMP 01/09: Was normal. LFTs 01/09: Normal. Vitamin B12: 557. Folate: 9.10. Procalcitonin on 01/08: 2.17. TSH: 1.217. UA 01/08: Shows 21 to 50 white blood cells, 250 leukocyte esterase, 11 to 20 rbc's, 2+ blood. Urine test: Negative. UTOX 01/08: Shows positive beta-hydroxybutyrate to 0.3. COVID PCR 01/08: Positive. IMAGING STUDIES: CT abdomen and pelvis 01/08: Shows no evidence of obstructive uropathy. There is small intrarenal and ureteral calculi. No hydronephrosis or hydroureter. Chest x-ray 01/08: No acute cardiopulmonary process. CTA chest 01/08: Hypodense nodules of each lobe of thyroid gland. Consider nonemergent followup thyroid ultrasound. Chest x-ray 01/08: was normal. DISCHARGE CONDITION: Stable. ACTIVITY: As tolerated. DIET: Diabetic diet. DISCHARGE MEDICATIONS: 1. Cefdinir 300 mg p.o. b.i.d. 2. Doxycycline 100 mg p.o. b.i.d. 3. Prednisone 40 mg p.o. daily x2, then 30 mg p.o. daily x2, then 20 mg p.o. daily x2. 4. Sitagliptin 50 mg/500 mg daily. 5. NovoLog Mix 70/30, 40 units subcu q.a.m. 6. Gabapentin 400 mg p.o. t.i.d. 7. Amlodipine 5 mg p.o. daily. Discontinued medications: Lisinopril. DISCHARGE INSTRUCTIONS: The patient's lisinopril was discontinued on discharge due to possible allergic reaction. She was switched to amlodipine 5 mg. She does have a possible thyroid nodule which needs to be followed up and consider a thyroid ultrasound as an outpatient. Also, please repeat a CBC in a week to follow up resolution of her leukocytosis. Job ID: [id number] MTDD
== END 2020-01-12 14:48 | disposition home or self-care (01) | DRG 871 ==
LOC: ERS 09:29 → ERHOLD 12:56 → IMCU/EMU 17:20 → 2NO 01-10 18:12
PROVIDERS: ADMIT Internal Medicine; ATTEND Internal Medicine
PROC: 8E0ZXY6 Isolation (ICD-10-PCS; principal; 2020-01-09)
DX: A41.51 Sepsis due to Escherichia coli [E. coli] (principal); U07.1 COVID-19; T78.2XXA Anaphylactic shock, unspecified, initial encounter; N39.0 Urinary tract infection, site not specified; L03.311 Cellulitis of abdominal wall; B96.20 Unspecified Escherichia coli [E. coli] as the cause of diseases classified elsewhere; E11.65 Type 2 diabetes mellitus with hyperglycemia; E66.9 Obesity, unspecified; E04.2 Nontoxic multinodular goiter; E11.42 Type 2 diabetes mellitus with diabetic polyneuropathy; Z88.8 Allergy status to other drugs, medicaments and biological substances; Z79.899 Other long term (current) drug therapy; Z90.49 Acquired absence of other specified parts of digestive tract; Z79.4 Long term (current) use of insulin; Z68.25 Body mass index [BMI] 25.0-25.9, adult
CPT/HCPCS: 36415; 36416; 36556; 71045; 71275; 74176; 80053; 80202; 81003; 81015; 81025; 82010; 82330; 82607; 82728; 82746; 82803; 83540; 83550; 83605; 83690; 83880; 84145; 84443; 84484; 85025; 85027; 85610; 85730; 87040; 87077; 87086; 87186; 93005; 96361; 96365; 96366; 96375; J0171; J0692; J0696; J1200; J1650; J1815; J2920; J3370; J3490; J7030; J7050; J7512; Q9967; U0002

== ENCOUNTER 2020-08-27 11:13 | Outpatient (CLI) | payer MEDICARE, MEDICAID | END 2020-08-27 11:14 | disposition home or self-care (01) | LOC: BICRAD 11:13 | PROVIDERS: ATTEND Internal Medicine | DX: M79.671 Pain in right foot (principal); M77.31 Calcaneal spur, right foot ==